=== PATIENT | male | born 1985 | race Caucasian/White ===

== ENCOUNTER → 2018-04-10 | Day surgery (SDC) | payer OTHER ==
[~2018-04-10] MED LIST: ACETAMINOPHEN 500 MG TAB PO PRN; BUPIVACAINE/EPI 0.5% 30 ML SDV ONE; DEXAMETHASONE 4 MG/ML VIAL ONE; HYDROmorphONE/DILAUDID 2 MG/ML INJ IVP PRN; HYDROmorphONE/DILAUDID 2 MG/ML INJ ONE; IOPAMIDOL (ISOVUE-300) 100 ML BTL ONE; KETOROLAC 30 MG/1 ML SDV IVP ONE; KETOROLAC 30 MG/1 ML SDV ONE; LIDOCAINE 2% 5 ML SDV ONE; LR 1,000 ML IV ONE; LR 500 ML IV PRN; MEPERIDINE 25 MG/0.5 ML AMP IVP PRN; MIDAZOLAM 2 MG/2 ML VIAL IVP ONE; MIDAZOLAM 2 MG/2 ML VIAL ONE; NALOXONE HCL 0.4 MG/ML INJ IVP PRN; NS 1,000 ML IV ONE; ONDANSETRON 4 MG/2 ML VIAL IVP PRN; ONDANSETRON 4 MG/2 ML VIAL ONE; PHENYLEPHRINE HCL 100 MCG/ML SYR ONE; PROMETHAZINE HCL 25 MG/ML INJ IVP PRN; PROPOFOL 200 MG/20 ML VIAL ONE; ROCURONIUM 50 MG/5 ML VIAL ONE; SUCCINYLCHOLINE CHLORIDE 200 MG/10 ML SYR IVP ONE; SUGAMMADEX SODIUM 200 MG/2 ML VIAL IVP ONE; cefOXitin SODIUM 1 GM in NS 50 ML IV ONE; fentaNYL 100 MCG/2 ML INJ IVP PRN; fentaNYL 100 MCG/2 ML INJ ONE; oxyCODONE IR 5 MG TAB PO PRN
--- NOTE | 2018-04-10 09:28 | EDPHY ---
H & P Time Seen by Provider: 04/10/18 09:11 HPI/ROS: CHIEF COMPLAINT: Abdominal pain HISTORY OF PRESENT ILLNESS: Patient had a 12-18 hour gastrointestinal illness with nausea and vomiting about a week ago. Over last 18 hr he has developed abdominal pain which now localizes to the right lower quadrant. He says it is worse lying flat and better when he sits up a little. He had dinner last night but did not have breakfast, no change with oral intake. Not associated with vomiting or diarrhea. Symptoms moderate, he is worried about his appendix. No previous abdominal surgery. Not associated with fever or urinary symptoms. REVIEW OF SYSTEMS: Eye: no change in vision ENT: no sore throat Cardiac: no chest pain or syncope Pulmonary: no cough or SOB Abdomen: HPI Musculoskeletal: no back pain Skin: no rash Neuro: no headache Constitutional: no fever : no urinary symptoms A comprehensive 10 point review of systems is otherwise negative aside from elements mentioned in the history of present illness. PAST MEDICAL HISTORY: Negative Social history: Nonsmoker General Appearance: Alert and conversant, cooperative. Eyes: No scleral icterus. ENT, Mouth: Normal mucous membranes. Respiratory: Normal respiratory effort, breath sounds equal, lungs are clear to auscultation. Cardiovascular: Regular rate and rhythm. Gastrointestinal: Patient has tenderness to palpation of McBurney's point, no guarding or rebound. Normal male without testicular abnormality. Neurological: Alert, face symmetric, normal motor and sensory in extremities. Skin: Warm and dry, no rashes. Musculoskeletal: No peripheral edema. Psychiatric: Not agitated. Emergency Department course/MDM: Intermediate suspicion for appendicitis, CT abdomen pelvis discussed and consented. Pain medications initially declined by the patient. 1040: Appendicitis on CT per Dr. Abigail Hobson; Dr. Mchugh at 1040 came to the emergency department to see the patient. Smoking Status: Never smoked Constitutional: Initial Vital Signs Temperature (C) 36.7 C 04/10/18 09:08 Heart Rate 82 04/10/18 09:08 Respiratory Rate 18 04/10/18 09:08 Blood Pressure 136/80 H 04/10/18 09:08 O2 Sat (%) 96 04/10/18 09:08 O2 Delivery Mode Room Air Allergies/Adverse Reactions: No Known Allergies Allergy (Unverified 04/10/18 09:08) Home Medications: Medication Instructions Recorded NK [No Known Home Meds] 04/10/18 Medical Decision Making - Diagnostics Imaging Results: Imaging Impressions Abdomen CT 04/10/18 09:28 Impression: 1. Acute appendicitis. 2. Subjacent loop of terminal ileum is also thickened and inflamed, that might be a byproduct of the subjacent acute appendicitis. Findings and recommendations discussed with Dr. Manuel Schneider at 10:40 a.m. on April 10, 2018. Final report concurs with initial preliminary interpretation. Imaging: Discussed imaging studies w/ cart driver Radiologist Differential Diagnosis: Differential considered including but not limited to testicular torsion, appendicitis, mesenteric adenitis, gastroenteritis. - Data Points Laboratory Results: Laboratory Results 04/10/18 09:20 04/10/18 09:20 04/10/18 04/10/18 04/10/18 09:27 09:20 09:20 WBC 9.71 10^3/uL H 10^3/uL (3.80-9.50) RBC 5.29 10^6/uL 10^6/uL (4.40-6.38) Hgb 15.8 g/dL g/dL (13.7-17.5) POC Hgb 16.0 gm/dL gm/dL (13.7-17.5) Hct 45.8 % % (40.0-51.0) POC Hct 47 % % (40-51) MCV 86.6 fL fL (81.5-99.8) MCH 29.9 pg pg (27.9-34.1) MCHC 34.5 g/dL g/dL (32.4-36.7) RDW 11.7 % % (11.5-15.2) Plt Count 257 10^3/uL 10^3/uL (150-400) MPV 9.3 fL fL (8.7-11.7) Neut % (Auto) 70.5 % % (39.3-74.2) Lymph % (Auto) 17.6 % % (15.0-45.0) Barbour % (Auto) 8.7 % % (4.5-13.0) Eos % (Auto) 2.2 % % (0.6-7.6) Baso % (Auto) 0.4 % % (0.3-1.7) Nucleat RBC Rel Count 0.0 % % (0.0-0.2) Absolute Neuts (auto) 6.85 10^3/uL H 10^3/uL (1.70-6.50) Absolute Lymphs (auto) 1.71 10^3/uL 10^3/uL (1.00-3.00) Absolute Monos (auto) 0.84 10^3/uL H 10^3/uL (0.30-0.80) Absolute Eos (auto) 0.21 10^3/uL 10^3/uL (0.03-0.40) Absolute Basos (auto) 0.04 10^3/uL 10^3/uL (0.02-0.10) Absolute Nucleated RBC 0.00 10^3/uL 10^3/uL (0-0.01) Immature Gran % 0.6 % % (0.0-1.1) Immature Gran # 0.06 10^3/uL 10^3/uL (0.00-0.10) POC Sodium 142 mEq/L mEq/L (135-145) Sodium 138 mEq/L mEq/L (135-145) POC Potassium 3.8 mEq/L mEq/L (3.3-5.0) Potassium 4.0 mEq/L mEq/L (3.5-5.2) POC Chloride 102 mEq/L mEq/L (97-110) Chloride 104 mEq/L mEq/L (97-110) Carbon Dioxide 26 mEq/l mEq/l (22-31) Anion Gap 8 mEq/L mEq/L (6-14) POC BUN 12 mg/dL mg/dL (7-23) BUN 14 mg/dL mg/dL (7-23) Creatinine 1.0 mg/dL mg/dL (0.7-1.3) POC Creatinine 1.0 mg/dL mg/dL (0.7-1.3) Estimated GFR > 60 Glucose 107 mg/dL H mg/dL (70-100) POC Glucose 109 mg/dL H mg/dL (70-100) Calcium 9.4 mg/dL mg/dL (8.5-10.4) Medications Given: Ketorolac Tromethamine (Toradol) 30 mg IVP EDNOW ONE Stop: 04/10/18 11:29 Last Admin: 04/10/18 11:33 Dose: 30 mg Discontinued Medications Sodium Chloride (Ns) 1,000 mls @ 0 mls/hr IV EDNOW ONE; Wide Open PRN Reason: Protocol Stop: 04/10/18 09:24 Last Admin: 04/10/18 09:46 Dose: 1,000 mls Cefoxitin Sodium 1 gm/ Sodium (Chloride) 50 mls @ 200 mls/hr IV EDNOW ONE PRN Reason: Protocol Stop: 04/10/18 10:58 Last Admin: 04/10/18 11:07 Dose: 50 mls Point of Care Test Results: Chemistry 04/10/18 09:27 POC Sodium 142 mEq/L mEq/L (135-145) POC Potassium 3.8 mEq/L mEq/L (3.3-5.0) POC Chloride 102 mEq/L mEq/L (97-110) POC BUN 12 mg/dL mg/dL (7-23) POC Creatinine 1.0 mg/dL mg/dL (0.7-1.3) POC Glucose 109 mg/dL H mg/dL (70-100) ISTAT H&H 04/10/18 09:27 POC Hgb 16.0 gm/dL gm/dL (13.7-17.5) POC Hct 47 % % (40-51) Departure - Departure Disposition: To OP Cath/Surgery Clinical Impression: Acute appendicitis Condition: Good Referrals: NONE *PRIMARY CARE P,. [Primary Care Provider] - As per Instructions
[2018-04-10 09:37] LABS: PLATELET COUNT 257 10^3/uL (150-400)
--- NOTE | 2018-04-10 11:53 | PDANEPAE ---
ANE History of Present Illness acute appendicitis, here for lap anna INDRA Past Medical History - Cardiovascular History Hx Hypertension: No Hx Arrhythmias: No Hx Chest Pain: No Hx Coronary Artery / Peripheral Vascular Disease: No Hx CHF / Valvular Disease: No Hx Palpitations: No - Pulmonary History Hx COPD: No Hx Asthma/Reactive Airway Disease: No Hx Recent Upper Respiratory Infection: No Hx Oxygen in Use at Home: No Hx Sleep Apnea: No - Endocrine History Hx Diabetes: No Hypothyroid: No Hyperthyroid: No - GI History GERD: no (abd pain) ANE Review of Systems Review of Systems: ANE Patient History - Allergies Allergies/Adverse Reactions: No Known Allergies Allergy (Verified 04/10/18 11:38) - Home Medications Home Medications: Acetaminophen [Tylenol 325mg (*)] 325 mg PO DAILY PRN 04/10/18 [Last Taken Unknown] - NPO status NPO Since - Liquids (Date): 04/10/18 NPO Since - Liquids (Time): 09:00 NPO Since - Solids (Date): 04/09/18 NPO Since - Solids (Time): 18:30 - Smoking Hx Smoking Status: Never smoked IDNRA Labs/Vital Signs - Labs Result Diagrams: 04/10/18 09:20 04/10/18 09:20 - Vital Signs Blood Pressure: 144/85 Heart Rate: 74 Respiratory Rate: 16 O2 Sat (%): 96 Height: 187.96 cm Weight: 106.594 kg INDRA Physical Exam - Airway Neck exam: FROM Mallampati Score: Class 2 Mouth exam: normal dental/mouth exam - Pulmonary Pulmonary: no respiratory distress - Cardiovascular Cardiovascular: regular rate and rhythym - ASA Status ASA Status: II, E INDRA Anesthesia Plan Anesthesia Plan: general endotracheal anesthesia Total IV Anesthesia: No
--- NOTE | 2018-04-10 12:13 | GHP ---
DATE OF ADMISSION: 04/10/2018 REASON FOR EVALUATION: Acute appendicitis. HISTORY OF PRESENT ILLNESS: 32-year-old healthy male with a 1-week history of prodrome of a flu-like symptom inclusive of nausea, vomiting and fevers starting last Tuesday. Those symptoms subsided. The patient had persistent right lower quadrant pain over the course of the next week, which was mild in nature. He while visiting his in-laws from [place], he developed worsening pain throughout the course of the evening and thus bringing him to the emergency room this morning. No antecedent history of similar complaints. No history of diarrhea or constipation. No active nausea or vomiting. No active fevers or chills. No voiding complaints. PAST MEDICAL HISTORY: None. PAST SURGICAL HISTORY: None. MEDICATIONS: None ALLERGIES: No known drug allergies. 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 He is . He has 2 kids and a 3rd on the [address] out. No drinking. No alcohol. FAMILY HISTORY: Noncontributory. REVIEW OF SYSTEMS: Notable for acute GI complaints only. PHYSICAL EXAMINATION: VITAL SIGNS: Temperature 36.8, blood pressure 144/85, pulse 74, respirations 16. GENERAL: The patient is alert, appropriate, comfortable at present time. HEENT: Anicteric. No cervical or supraclavicular lymphadenopathy. HEART: Regular. LUNGS: Clear. ABDOMEN: Soft, mildly distended focal right lower quadrant tenderness without rebound or guarding. Negative Rovsing sign. Negative obturator sign. White count 9. Electrolytes within reference range. CT of the abdomen and pelvis images were directly reviewed on PACS, a 20 mm appendix with periappendiceal inflammatory changes. No free fluid. No free air. IMPRESSION: Acute appendicitis. PLAN: Laparoscopic appendectomy. Risks and benefits were explained to him of bleeding, infection, open conversion, as well as alternative diagnoses. All questions were answered. He desires to proceed. /[id number]/MODL MTDD
--- NOTE | 2018-04-10 13:05 | POSTOPPROG ---
Post Op Note Date of Operation: 04/10/18 Surgeon: Fletcher Mchugh Anesthesiologist: Lissett Pacheco Anesthesia: GET(General Endotracheal) Pre-op Diagnosis: Acute appendicitis Post-op Diagnosis: Same Procedure: Lap Appy Findings: Dilated, firm appendix Inf/Abcess present in the surg proc area at time of surgery?: Yes Depth: Organ Space EBL: Minimal Complications: no immediate Specimen(s): appendix
--- NOTE | 2018-04-10 13:13 | POSTANESTH ---
Post Anesthetic Evaluation Cardiovascular Status: Normal, Stable Respiratory Status: Normal, Stable Level of Consciousness/Mental Status: Can Participate in Eval Pain Control: Adequate, Prn Tx Ordered Nausea/Vomiting Control: Adequate, Prn Tx Ordered Complications Possibly Related to Anesthesia: None Noted
--- NOTE | 2018-04-10 13:31 | GOP ---
DATE OF OPERATION: 04/10/2018 SURGEON: Fletcher Mchugh MD ANESTHESIA: General, Dr. Pacheco. PREOPERATIVE DIAGNOSIS: Acute appendicitis. POSTOPERATIVE DIAGNOSIS: Acute appendicitis. PROCEDURE: Laparoscopic appendectomy. 32-year-old male with acute appendicitis. He is undergoing a laparoscopic appendectomy at this time. Risks and benefits were explained of bleeding, infection, open conversion, as well as alternative diagnoses. All questions were answered. He desires to proceed. DESCRIPTION OF PROCEDURE: General anesthesia was induced. The abdomen was injected with 0.5% Marcaine with epinephrine. A vertical infraumbilical cutdown was created. A 10 mm trocar was placed under direct visualization. Two additional 5 mm lower midline ports were inserted. The appendix was markedly thickened and inflamed. No suppuration or perforation was present. The tip was adherent to the distal ileal mesentery. This was easily teased away. The mesoappendix was divided with a harmonic Scalpel. The base was transected at the base of the cecum with an endoscopic TYSON stapler. The specimen was brought through the umbilical port site intact using an EndoCatch pouch. Satisfactory hemostasis was assured. No murky or purulent fluid was present throughout. The trocars were removed under direct visualization. The infraumbilical midline fascia was closed with a running Vicryl suture. The wounds were closed with Monocryl suture followed by Dermabond. The patient was taken to the recovery room uneventfully. /[id number]/MODL MTDD
[2018-04-10 14:05] VITALS: BP 126/75
== END | disposition home or self-care (01) ==
LOC: UNDOADMOB 11:30 → F3N 11:30 → FSGY 11:39 → UNDODISOB 14:05
PROVIDERS: ATTEND Surgery
PROC: 0DTJ8ZZ Resection of Appendix, Via Natural or Artificial Opening Endoscopic (ICD-10-PCS; principal; 2018-04-10 11:47)
DX: K35.80 Unspecified acute appendicitis (principal)
CPT/HCPCS: 82435-PO; 82565-PO; 82947-PO; 84132-PO; 84295-PO; 84520-PO; 85014-PO; J0330; J0694; J1100; J1170; J1885; J2250; J2370; J2405; J2704; J3010; Q9967